=== PATIENT | male | born 1985 | race Caucasian/White ===

== ENCOUNTER 2017-01-14 11:10 | Emergency (ER) | payer BC ==
--- NOTE | 2017-01-14 11:22 | ED Physician Documentation ---
General Adult - HISTORIAN Historian: patient - HPI Stated Complaint: Laceration Chief Complaint: Laceration/Recheck/Suture Additional Information: less than one hour prior to arrival Timing: still present Severity: mild Further Comments: no Last known Well Date: 01/14/17 Last Known Well Time: 10:00 - ROS CONST: no problems EYES/ENT: none CVS/RESP: none GI/: none MS/SKIN/LYMPH: none NEURO/PSYCH: denies: headache, fainting, dizziness - PAST HX Past History: none Other History: none Surgeries/Procedures: none Immunizations: UTD, referred to PCP Allergies/Adverse Reactions: Allergies Allergy/AdvReac Type Severity Reaction Status Date / Time No Known Allergies Allergy Unverified 01/14/17 11:20 Home Medications: Ambulatory Orders Medication Instructions Recorded NK [NK] 01/14/17 - SOCIAL HX Smoking History: non-smoker Alcohol Use: none Drug Use: none - FAMILY HX Family History: No - VITAL SIGNS Vital Signs: Vital Signs Temp Pulse Resp BP Pulse Ox 98.1 F 70 16 132/72 98 01/14/17 11:10 01/14/17 11:10 01/14/17 11:10 01/14/17 11:10 01/14/17 11:10 - REVIEWED ASSESSMENTS Nursing Assessment Reviewed: Yes Vitals Reviewed: Yes Procedures Wound Location: upper extremity (left hand index finger ) Wound's Depth, Shape: superficial Wound Explored: no foreign body removed Anesthesia: 1% Lidocaine Volume of Anesthetic: 5ml Wound Repaired With: sutures Suture Size/Type: 5:0 Number of Sutures: 4 Layer Closure?: No ED Results Lab/Radiology - Orders Orders: ED Orders Category Date Time Status Lidocaine 1% 5ml(IM or SUTURE) [Xylocaine] Med 01/14/17 11:11 Discontinued 50 mg .ROUTE .STK-MED ONE Lidocaine 1% 5ml(IM or SUTURE) [Xylocaine] Med 01/14/17 12:02 Once 50 mg IJ NOW ONE General Adult Physical Exam - PHYSICAL EXAM GENERAL APPEARANCE: no distress EENT: eye inspection normal RESPIRATORY: no resp distress, chest non-tender, breath sounds normal CVS: reg rate & rhythm, heart sounds normal, no murmur ABDOMEN: soft, no organomegaly, normal bowel sounds, no abdominal bruit, no distension SKIN: other (laceration left hand index finger apprx 5 cm ) NEURO: oriented X3, CN's nml as tested Discharge Clincal Impression: Laceration Referrals: Tanisha Gomez FNP [Primary Care Provider] - 2 Days Condition: Stable Disposition: 01 HOME, SELF-CARE Decision to Admit: NO Date of Decison to Admit: 01/14/17 Decision Time: 12:05
[2017-01-14] MEDS: Lidocaine 1% 5ml(IM or SUTURE)(PAIN CLINIC) IJ ONE (12:02)
[2017-01-14 12:14] VITALS: BP 117/71
[2017-01-14] MEDS: Lidocaine 1% 5ml(IM or SUTURE)(PAIN CLINIC) ONE (12:15)
== END 2017-01-14 12:12 | disposition home or self-care (01) ==
LOC: ED 11:10
DX: S61.211A Laceration without foreign body of left index finger without damage to nail, initial encounter (principal); X58.XXXA Exposure to other specified factors, initial encounter; Y93.9 Activity, unspecified; Y99.9 Unspecified external cause status
CPT/HCPCS: 12002; 99283